=== PATIENT | female | born 1995 | race Caucasian/White ===

== ENCOUNTER 2021-05-09 16:10 | Emergency (ER) | payer SELFPAY ==
[~2021-05-09] VITALS: Ht 160 cm; Wt 76.2 kg
[2021-05-09 16:23] VITALS: BP 157/87
--- NOTE | 2021-05-09 16:54 | NUR ---
novel swab done. walked to lab
[2021-05-09] MEDS ORDERED: IBUP-2213 PO (17:23)
[2021-05-09] MEDS ORDERED: PHEN177S23 PO (17:23)
[2021-05-09] MEDS ORDERED: PROM118S5 PO (17:23)
--- NOTE | 2021-05-09 17:32 | NUR ---
Patient discharged with v/s stable. Written and verbal after care instructions given and explained. Patient alert, oriented and verbalized understanding of instructions. Ambulatory with steady gait. All questions addressed prior to discharge. ID band removed. Patient advised to follow up with PMD. Rx of IBUPROFEN, PROMETHAZINE SYRUP, CHLORASEPTIC SPRAY given. Patient educated on indication of medication including possible reaction and side effects. Opportunity to ask questions provided and answered.
[2021-05-09 17:34] VITALS: BP 157/87
--- NOTE | 2021-05-14 10:24 | NUR ---
infection control to call pt with covid test results
== END 2021-05-09 17:34 | disposition home or self-care (01) ==
LOC: MED 16:10
DX: U07.1 COVID-19 (principal)
CPT/HCPCS: 71045; 99284; U0003